=== PATIENT | male | born 1995 ===

== ENCOUNTER 2017-11-01 19:28 | Emergency (ER) | payer OTHER ==
[2017-11-01 19:55] VITALS: BP 101/65; PULSE 73; RESP 20; TEMP 98.2; O2SAT 98
[2017-11-01] MEDS ORDERED: Tdap Vaccine 0.5 ml Vial (10-64 yrs) IM ONE ×2 (20:07→20:15)
[2017-11-01] MEDS ORDERED: Silver Sulfadiazine 1% CREAM (50 gm) TOP STA (20:08)
[2017-11-01] MEDS ORDERED: Silver Sulfadiazine 1% CREAM (50 gm) ONE (20:14)
--- NOTE | 2017-11-01 20:16 | ED PDOC ---
Lower Extremity Pain/Injury Time Seen by Provider: 11/01/17 20:05 Chief Complaint (Nursing): Lower Extremity Problem/Injury Chief Complaint (Provider): Lower extremity problem/injury History Per: Patient History/Exam Limitations: no limitations Onset/Duration Of Symptoms: Other (x1 week) Current Symptoms Are (Timing): Still Present Additional Complaint(s): 22 year old male presented to ED after he spilt water on the foot last week and was told to be seen in the ED. Patient reports there was black tissue on his foot and was hurt very badly at the time. Pain continued but is less now. He has been using [place] medications for the burn. Denied fever and chills. PCP: none provided Past Medical History Reviewed: Historical Data, Nursing Documentation, Vital Signs Vital Signs: Last Vital Signs Temp 98.2 F 11/01/17 19:54 Pulse 73 11/01/17 19:54 Resp 20 11/01/17 19:54 BP 101/65 11/01/17 19:54 Pulse Ox 98 11/01/17 19:54 - Medical History PMH: Asthma - Surgical History Surgical History: No Surg Hx - Family History Family History: States: Unknown Family Hx - Immunization History Hx Tetanus Toxoid Vaccination: No Hx Influenza Vaccination: Yes Hx Pneumococcal Vaccination: No - Home Medications Home Medications: Ambulatory Orders Medication Instructions Recorded Acetaminophen [Tylenol 325mg tab] 650 mg PO Q4 PRN #20 tab 11/26/16 Silver Sulfadiazine 1% 50 gm 0.5 gm EXT BID #1 jar 11/01/17 [Silvadene 1% 50 gm] - Allergies Allergies/Adverse Reactions: Allergies Allergy/AdvReac Type Severity Reaction Status Date / Time No Known Allergies Allergy Verified 11/01/17 19:53 Review of Systems ROS Statement: Except As Marked, All Systems Reviewed And Found Negative Constitutional: Negative for: Fever, Chills Musculoskeletal: Positive for: Other (black tissue on foot) Physical Exam - Reviewed Nursing Documentation Reviewed: Yes Vital Signs Reviewed: Yes - Physical Exam Appears: Positive for: Non-toxic, No Acute Distress Head Exam: Positive for: ATRAUMATIC, NORMAL INSPECTION, NORMOCEPHALIC Skin: Positive for: Normal Color, Warm, Dry Neck: Positive for: Normal, Painless ROM Cardiovascular/Chest: Positive for: Regular Rate, Rhythm. Negative for: Murmur Respiratory: Positive for: Normal Breath Sounds. Negative for: Wheezing, Respiratory Distress Extremity: Positive for: Normal ROM Neurologic/Psych: Positive for: Alert, Oriented Comments: RIGHT FOOT: dorsum of right foot near base of 4th toe, burn located there, well healing, open blisters, and mild darkening of skin but no necrosis noted. - ECG O2 Sat by Pulse Oximetry: 98 (RA) Pulse Ox Interpretation: Normal Medical Decision Making Medical Decision Making: Initial Impression: Right foot burn Initial Plan: Silver sulfadiazine 1% 1 applic Top Tetanus 0.5mL IM Scribe Attestation: Documented by Marco Antonio Joseph acting as a scribe for Rikki MELO. Provider Scribe Attestation: All medical record entries made by the Scribe were at my direction and personally dictated by me. I have reviewed the chart and agree that the record accurately reflects my personal performance of the history, physical exam, medical decision making, and the department course for this patient. I have also personally directed, reviewed, and agree with the discharge instructions and disposition. Disposition - Clinical Impression Clinical Impression: Partial thickness burn - Patient ED Disposition Is Patient to be Admitted: No - Disposition Referrals: [facility] [Outside] [facility] [Outside] Disposition: Routine/Home Disposition Time: 20:10 Condition: IMPROVED Prescriptions: Silver Sulfadiazine 1% 50 gm [Silvadene 1% 50 gm] 0.5 gm EXT BID #1 jar Instructions: Skin Carlos (DC) Forms: [employer] (Upper Sor[place]), [facility] ED School/Work Excuse
== END 2017-11-01 20:38 | disposition home or self-care (01) ==
LOC: H.ER 19:28
DX: T25.021A Burn of unspecified degree of right foot, initial encounter (principal); J45.909 Unspecified asthma, uncomplicated

== ENCOUNTER 2018-08-28 20:42 | Inpatient (IN) | payer SELFPAY ==
[2018-08-28] MEDS ORDERED: Sodium Chloride 0.9% 1,000 ML IV STA (21:36)
--- NOTE | 2018-08-28 21:40 | ED PDOC ---
HPI: Abdomen Time Seen by Provider: 08/28/18 20:56 Chief Complaint (Nursing): Abdominal Pain History Per: Patient History/Exam Limitations: no limitations Onset/Duration Of Symptoms: Days (4) Current Symptoms Are (Timing): Still Present Severity: Mild Location Of Pain/Discomfort: RLQ Associated Symptoms: Diarrhea Last Bowel Movement: Today Additional History Per: Patient Additional Complaint(s): Patient presenting with abdominal pain after being called to return for abnormal CT findings. Patient was seen in ER here yesterday and had CT abdomen that was read by KARENrad showing colitis. Final radiology results showed possible appendicitis. Past Medical History Reviewed: Historical Data, Nursing Documentation, Vital Signs Vital Signs: Last Vital Signs Temp 98.4 F 08/28/18 21:05 Pulse 71 08/28/18 21:05 Resp 18 08/28/18 21:05 BP 177/71 H 08/28/18 21:05 Pulse Ox 97 08/28/18 21:05 - Medical History PMH: Asthma - Surgical History Surgical History: No Surg Hx - Family History Family History: States: Unknown Family Hx - Immunization History Hx Tetanus Toxoid Vaccination: No Hx Influenza Vaccination: Yes Hx Pneumococcal Vaccination: No - Home Medications Home Medications: Ambulatory Orders Medication Instructions Recorded No Known Home Med 08/28/18 - Allergies Allergies/Adverse Reactions: Allergies Allergy/AdvReac Type Severity Reaction Status Date / Time No Known Allergies Allergy Verified 08/28/18 21:18 Review of Systems ROS Statement: Except As Marked, All Systems Reviewed And Found Negative Physical Exam - Reviewed Nursing Documentation Reviewed: Yes Vital Signs Reviewed: Yes - Physical Exam Appears: Positive for: Well, Non-toxic, No Acute Distress Head Exam: Positive for: ATRAUMATIC, NORMAL INSPECTION Skin: Positive for: Normal Color, Warm, Dry Eye Exam: Positive for: EOMI ENT: Positive for: Normal ENT Inspection Cardiovascular/Chest: Positive for: Regular Rate, Rhythm Respiratory: Positive for: Normal Breath Sounds Gastrointestinal/Abdominal: Positive for: Soft, Tenderness (RLQ) Extremity: Positive for: Normal ROM Neurological/Psych: Positive for: Awake, Alert, Oriented (x3) - Laboratory Results Result Diagrams: 08/29/18 06:05 08/29/18 06:05 - ECG O2 Sat by Pulse Oximetry: 97 Medical Decision Making Medical Decision Making: Abdominal pain Diff include acute appendicitis Plan Labs Surgery consult reassess FINAL CT RESULTS FROM [facility] RADIOLOG[facility] ON 08/28/2018 Accession No. : [id number] Patient Name / ID : KENNETH FINCH / [id number] Exam Date : 08/27/2018 20:11:13 ( Approved ) Study Comment : Sex / Age : M / 23Y Creator : Vin Cortes MD Dictator : Vin Cortes MD Field Coil Winder : Outpatient Psychiatrist : Vin Cortes MD Approver2 : Report Date : 08/28/2018 11:46:06 My Comment : Date of service: 08/27/2018 PROCEDURE: CT Abdomen and Pelvis with contrast HISTORY: lower abdominal pain COMPARISON: 2012 TECHNIQUE: Contrast dose: 90 milliliters Radiation dose: Total exam DLP = 254.34 mGy-cm. This CT exam was performed using one or more of the following dose reduction techniques: Automated exposure control, adjustment of the mA and/or kV according to patient size, and/or use of iterative reconstruction technique. FINDINGS: LOWER THORAX: Unremarkable. LIVER: Liver is slightly fatty infiltrated, without evidence of focal mass or intrahe patic ductal dilatation. GALLBLADDER AND BILE DUCTS: Unremarkable. PANCREAS: Unremarkable. No gross lesion or ductal dilatation. SPLEEN: Unremarkable. ADRENALS: Unremarkable. No mass. KIDNEYS AND URETERS: Unremarkable. No hydronephrosis. No solid mass. VASCULATURE: Unremarkable. No aortic aneurysm. No aortic atherosclerotic calcification or mural plaque present. BOWEL: There is evidence of nonspecific diffuse colonic wall thickening with mild pericolonic inflammatory changes suspicious for colitis of either infectious or inflammatory etiology. There is also some subtle mild fold thickening of the small bowel without significant distention or dilatation. Mild amount of superimposed enteritis is not excluded. Terminal ileum is unremarkable. APPENDIX: The appendix is mildly distended with fluid with mild possible appendiceal wall enhancement and adjacent enhancement/inflammatory change. This may suggest early appendicitis. Correlation with symptoms would be suggested. Appendix measures 7-8 millimeters in maximal diameter. PERITONEUM: There may be some minimal fluid seen within the posterior pelvis. LYMPH NODES: Unremarkable. No enlarged lymph nodes. BLADDER: Unremarkable. REPRODUCTIVE: Unremarkable. BONES: No acute fracture. OTHER FINDINGS: None. IMPRESSION: Non-specific colitis of either infectious or inflammatory etiology with diffuse colonic wall thickening and mild pericolonic inflammatory changes noted. In addition the appendix is distended with fluid with mild possible periappendiceal change and enhancement of the wall. Early appendicitis is suspected. Correlation with symptoms, exam, and laboratory values is suggested. This last finding was not mentioned on the preliminary report. This case will be placed into the PA review folder. PA in the emergency room was notified of the findings. Time: 2204 -- Spoke to surgical specialist who will evaluate the patient in the ED. vice president of customer service Discussed with Dr Lindsey who will admit the patient. Scribe Attestation: Documented by Martha Varela, acting as a scribe Amanda Reyes MD. Provider Scribe Attestation: All medical record entries made by the Scribe were at my direction and personally dictated by me. I have reviewed the chart and agree that the record accurately reflects my personal performance of the medical decision making for this patient. I have also personally directed, reviewed, and agree with the discharge instructions and disposition. Disposition - Clinical Impression Clinical Impression: Appendicitis, acute - Patient ED Disposition Is Patient to be Admitted: Yes Doctor Will See Patient In The: Hospital Counseled Patient/Family Regarding: Studies Performed, Diagnosis - Disposition Disposition Time: 22:22 Condition: STABLE - Pt Status Changed To: Hospital Disposition Of: Inpatient - Admit Certification Admit to Inpatient:: After my assessment, the patient will require hospitalization for at least two midnights. This is because of the severity of symptoms shown, intensity of services needed, and/or the medical risk in this patient being treated as an outpatient. - POA Present On Arrival: None
[2018-08-28 22:01] LABS: BASO % 0.7 % (0.0-2.0); EOS # 0.5 K/uL (0.0-0.7); EOS % 9.2 % (0.0-4.0); LYMPH # 1.7 K/uL (1.0-4.3); LYMPH % 30.3 % (20.0-40.0); MEAN CELL VOLUME 89.7 fl (80.0-94.0); MEAN CORPUSCULAR HEMOGLOBIN 30.1 pg (27.0-31.0); MEAN CORPUSCULAR HGB CONC 33.6 g/dL (33.0-37.0); MEAN PLATELET VOLUME 8.9 fl (7.2-11.7); MONO # 0.7 K/uL (0.0-0.8); MONO % 12.4 % (0.0-10.0); NEUT # 2.7 K/uL (1.8-7.0); NEUT % 47.4 % (50.0-75.0); NRBC % 0.1 % (0.0-0.0); RBC 5.32 Mil/uL (4.40-5.90); RED CELL DISTRIBUTION WIDTH 13.3 % (11.5-14.5); WHITE BLOOD COUNT 5.6 K/uL (4.8-10.8)
[2018-08-28 22:08] LABS: BLOOD UREA NITROGEN 10 mg/dl (9-20); CALCIUM 9.3 mg/dL (8.4-10.2); GFR NON-AFRICAN AMERICAN > 60; PROTHROMBIN TIME 11.8 Seconds (9.8-13.1)
[2018-08-28 22:10] LABS: PARTIAL THROMBOPLASTIN TIME 30.2 Seconds (25.6-37.1)
[2018-08-28] MEDS ORDERED: Piperacillin/Tazobact 3.375 GM in Sodium Chloride 0.9% 100 ML IVPB STA (22:23)
--- NOTE | 2018-08-28 22:30 | CP.PCM.HP ---
History of Present Illness - History of Present Illness History of Present Illness: GENERAL SURGERY HISTORY AND PHYSICAL FOR DR. FLYNN 23yo M with PMHx of asthma presents to the ED with abdominal pain and diarrhea. The pain began 3 days ago and was bilateral lower abdomen. He had diarrhea 20x each day over the past 2 days and then just 2 BMs today. He originally presented to [facility] ED and was discharged home per pt. He was seen at [facility] ED yesterday and CT was read by Akhil as colitis. He was discharged home with Rx for cipro and dicyclomine which pt did not fill. The CT was read by inhouse radiologist this morning as possible early appendicitis in addition to diffuse colitis. Pt was called and told to return to the ED for surgical evaluation. Pt reports that while initially his pain was bilateral lower abdomen, he did have some isolated RLQ mild pains today. Pt reports having an appetite today and ate normal meals. PMHx: asthma Surgeries: none Allergies: cats Social hx: social etoh, social smoker, quit marijuana 5 months ago Present on Admission - Present on Admission Any Indicators Present on Admission: No Review of Systems - Review of Systems All systems: reviewed and no additional remarkable complaints except Past Patient History - Past Social History Smoking Status: Never Smoked - PULMONARY Hx Asthma: Yes - GASTROINTESTINAL Hx Colitis: Yes - PSYCHIATRIC Hx Substance Use: No - SURGICAL HISTORY Hx Surgeries: No Meds Allergies/Adverse Reactions: Allergies Allergy/AdvReac Type Severity Reaction Status Date / Time No Known Allergies Allergy Verified 08/28/18 21:18 Physical Exam - Constitutional Appears: Well, Non-toxic, No Acute Distress - Head Exam Head Exam: ATRAUMATIC, NORMAL INSPECTION - Eye Exam Eye Exam: EOMI, Normal appearance - Respiratory Exam Respiratory Exam: NORMAL BREATHING PATTERN. absent: Respiratory Distress - Cardiovascular Exam Cardiovascular Exam: +S1, +S2 - GI/Abdominal Exam GI & Abdominal Exam: Soft, Tenderness (mild RLQ tenderness on deep palpation). absent: Distended, Firm, Guarding, Rebound, Rigid - Neurological Exam Neurological exam: Alert, CN II-XII Intact, Oriented x3 - Psychiatric Exam Psychiatric exam: Normal Affect, Normal Mood - Skin Skin Exam: Dry, Normal Color, Warm Results - Vital Signs Recent Vital Signs: Last Vital Signs Temp 98.4 F 08/28/18 21:05 Pulse 71 08/28/18 21:05 Resp 18 08/28/18 21:05 BP 177/71 H 08/28/18 21:05 Pulse Ox 97 08/28/18 22:06 - Labs Result Diagrams: 08/28/18 21:45 08/28/18 21:45 Labs: Laboratory Results - last 24 hr 08/28/18 08/28/18 08/28/18 21:45 21:45 21:45 WBC 5.6 RBC 5.32 Hgb 16.0 Hct 47.7 MCV 89.7 MCH 30.1 MCHC 33.6 RDW 13.3 Plt Count 133 MPV 8.9 Neut % (Auto) 47.4 L Lymph % (Auto) 30.3 [place] % (Auto) 12.4 H Eos % (Auto) 9.2 H Baso % (Auto) 0.7 Neut # (Auto) 2.7 Lymph # (Auto) 1.7 [place] # (Auto) 0.7 Eos # (Auto) 0.5 Baso # (Auto) 0.0 PT 11.8 INR 1.0 APTT 30.2 Sodium 140 Potassium 3.9 Chloride 98 Carbon Dioxide 29 Anion Gap 17 BUN 10 Creatinine 0.9 Est GFR ( Amer) > 60 Est GFR (Non-Af Amer) > 60 Random Glucose 93 Calcium 9.3 Assessment & Plan - Assessment and Plan (Free Text) Assessment: 23yo M with PMHx of asthma presents with colitis and possible early appendicitis - Afebrile, VSS - No leukokcytosis - CT: appendix mildly distended with fluid and mild possible periappendiceal wall enhancement and adjacent enhancement / inflammatory changes suggesting possible early appendicitis; diffuse colonic wall thickening suggestive of col itis - Admit to surgical service for observation overnight - NPO - IV fluids - IV Antibiotics - Serial abdominal exams - Possible OR tomorrow if worsening of sx or no improvement - Discussed plan with Dr. César Rhoades PGY-4
[2018-08-28] MEDS ORDERED: Lactated Ringer's 1,000 ML IV SCH (22:45)
[2018-08-28] MEDS ORDERED: Piperacillin/Tazobact 3.375 gm Inj IVPB ONE (22:48)
[2018-08-29] MEDS: Piperacillin/Tazobact 3.375 GM in Sodium Chloride 0.9% 100 ML IVPB SCH ×2 (04:34→09:20)
[2018-08-29 07:28] LABS: HEMOGLOBIN 15.1 g/dL (12.0-18.0); MEAN CELL VOLUME 90.4 fl (80.0-94.0); MEAN CORPUSCULAR HEMOGLOBIN 30.4 pg (27.0-31.0); MEAN CORPUSCULAR HGB CONC 33.6 g/dL (33.0-37.0); RBC 4.98 Mil/uL (4.40-5.90); RED CELL DISTRIBUTION WIDTH 13.3 % (11.5-14.5); WHITE BLOOD COUNT 7.3 K/uL (4.8-10.8)
--- NOTE | 2018-08-29 08:09 | CP.PCM.PN ---
Objective - Vital Signs/Intake and Output Vital Signs (last 24 hours): Temp Pulse Resp BP Pulse Ox 97.5 F L 63 19 100/67 97 08/29/18 01:00 08/29/18 01:00 08/29/18 01:00 08/29/18 01:00 08/29/18 01:00 - Medications Medications: Current Medications Lactated Ringer's (Lactated Ringer's) 1,000 mls @ 100 mls/hr IV .Q10H CLIFF Last Admin: 08/28/18 23:56 Dose: 100 mls/hr Piperacillin Sod/Tazobactam (Sod 3.375 gm/ Sodium Chloride) 100 mls @ 100 mls/hr IVPB Q6 CLIFF; Protocol Last Admin: 08/29/18 04:34 Dose: 100 mls/hr Influenza Virus Vaccine (Flucelvax Quad [id number] Syr) 60 mcg IM .ONCE ONE Stop: 08/29/18 09:31 Ketorolac Tromethamine (Toradol) 15 mg IVP Q6 PRN PRN Reason: Pain, moderate (4-7) Morphine Sulfate (Morphine) 2 mg IVP Q4 PRN PRN Reason: Pain, severe (8-10) Ondansetron HCl (Zofran Inj) 4 mg IVP Q4 PRN PRN Reason: Nausea/Vomiting Pneumococcal Polyvalent Vaccine (Pneumovax 23 Vaccine) 0.5 ml IM .ONCE ONE Stop: 08/29/18 09:32 - Labs Labs: 08/29/18 06:05 08/28/18 21:45 PT 11.8 Seconds (9.8-13.1) 08/28/18 21:45 INR 1.0 08/28/18 21:45 APTT 30.2 Seconds (25.6-37.1) 08/28/18 21:45
[2018-08-29] MEDS ORDERED: Influenza Vaccine (5 YR UP)/PF 60 MCG/0.5 ML SYR IM ONE (09:00)
[2018-08-29 09:02] VITALS: BP 103/64; PULSE 67; RESP 20; TEMP 97.3
[2018-08-29 09:09] LABS: BLOOD UREA NITROGEN 12 mg/dl (9-20); CALCIUM 8.7 mg/dL (8.4-10.2); GFR NON-AFRICAN AMERICAN > 60
[2018-08-29] MEDS ORDERED: Influenza Vaccine 60 mcg/0.5 mL SYR (4YR UP) IM ONE (09:30)
[2018-08-29] MEDS ORDERED: Pneumococcal 23-Valent Vaccine IM ONE (09:31)
[2018-08-29 10:21] VITALS: O2SAT 97
--- NOTE | 2018-08-29 12:14 | CP.PCM.DIS ---
Provider - Provider Date of Admission: 08/28/18 22:22 Attending physician: Donnie Lindsey MD Primary care physician: none provided Consults: General Surgery, Dr. Lindsey Time Spent in preparation of Discharge (in minutes): 30 Hospital Course - Lab Results Lab Results: Most Recent Lab Values WBC 7.3 K/uL (4.8-10.8) 08/29/18 06:05 RBC 4.98 Mil/uL (4.40-5.90) 08/29/18 06:05 Hgb 15.1 g/dL (12.0-18.0) 08/29/18 06:05 Hct 45.0 % (35.0-51.0) 08/29/18 06:05 MCV 90.4 fl (80.0-94.0) 08/29/18 06:05 MCH 30.4 pg (27.0-31.0) 08/29/18 06:05 MCHC 33.6 g/dL (33.0-37.0) 08/29/18 06:05 RDW 13.3 % (11.5-14.5) 08/29/18 06:05 Plt Count 127 K/uL (130-400) L 08/29/18 06:05 MPV 8.9 fl (7.2-11.7) 08/28/18 21:45 Neut % (Auto) 47.4 % (50.0-75.0) L 08/28/18 21:45 Lymph % (Auto) 30.3 % (20.0-40.0) 08/28/18 21:45 [place] % (Auto) 12.4 % (0.0-10.0) H 08/28/18 21:45 Eos % (Auto) 9.2 % (0.0-4.0) H 08/28/18 21:45 Baso % (Auto) 0.7 % (0.0-2.0) 08/28/18 21:45 Neut # (Auto) 2.7 K/uL (1.8-7.0) 08/28/18 21:45 Lymph # (Auto) 1.7 K/uL (1.0-4.3) 08/28/18 21:45 [place] # (Auto) 0.7 K/uL (0.0-0.8) 08/28/18 21:45 Eos # (Auto) 0.5 K/uL (0.0-0.7) 08/28/18 21:45 Baso # (Auto) 0.0 K/uL (0.0-0.2) 08/28/18 21:45 PT 11.8 Seconds (9.8-13.1) 08/28/18 21:45 INR 1.0 08/28/18 21:45 APTT 30.2 Seconds (25.6-37.1) 08/28/18 21:45 Sodium 142 mmol/l (132-148) 08/29/18 06:05 Potassium 3.8 MMOL/L (3.6-5.0) 08/29/18 06:05 Chloride 108 mmol/L (98-107) H 08/29/18 06:05 Carbon Dioxide 27 mmol/L (22-30) 08/29/18 06:05 Anion Gap 11 (10-20) 08/29/18 06:05 BUN 12 mg/dl (9-20) 08/29/18 06:05 Creatinine 1.0 mg/dl (0.8-1.5) 08/29/18 06:05 Est GFR ( Amer) > 60 08/29/18 06:05 Est GFR (Non-Af Amer) > 60 08/29/18 06:05 Random Glucose 92 mg/dL (75-110) 08/29/18 06:05 Calcium 8.7 mg/dL (8.4-10.2) 08/29/18 06:05 Blood Type A POSITIVE 08/28/18 21:45 Blood Type Confirm A POSITIVE 08/29/18 06:05 Antibody Screen Negative 08/28/18 21:45 BBK History Checked No verified bt 08/28/18 21:45 - Hospital Course Hospital Course: General Surgery note for Dr. Lindsey 23 y/o male with PMHx of asthma presented to the ED on 08/28/18 with abdominal pain and diarrhea. The pain began 3 days ago and was bilateral lower abdomen. Patient originally presented to [facility] ED and was discharged home per pt. He was seen at [facility] ED yesterday and CT was read by Akhil as colitis. He was disch arged home with Rx for cipro and dicyclomine which pt did not fill. The CT was read by inhouse radiologist this morning as possible early appendicitis in addition to diffuse colitis. Pt was called and told to return to the ED for surgical evaluation. Today, patient reports the pain has significantly improved, patient denies nausea, vomiting, fever or diarrhea at this time. Patient to follow up at outpatient - Regular Diet - CT: appendix mildly distended with fluid and mild possible periappendiceal wall enhancement and adjacent enhancement / inflammatory changes suggesting possible early appendicitis; diffuse colonic wall thickening suggestive of colitis -OTC pain medication -Encourage ambulation case discussed with Dr. César Jacobs, PGY1 - Date & Time of H&P Date of H&P: 08/29/18 Time of H&P: 12:14 Discharge Exam - Head Exam Head Exam: ATRAUMATIC, NORMAL INSPECTION - Eye Exam Eye Exam: Normal appearance - ENT Exam ENT Exam: Mucous Membranes Moist - Respiratory Exam Respiratory Exam: Clear to PA & Lateral. absent: Accessory Muscle Use, Respiratory Distress - Cardiovascular Exam Cardiovascular Exam: REGULAR RHYTHM, +S1, +S2 - GI/Abdominal Exam GI & Abdominal Exam: Normal Bowel Sounds, Tenderness (minimal RLQ tenderness). absent: Distended, Firm, Guarding - Neurological Exam Neurological exam: Alert, Oriented x3 - Psychiatric Exam Psychiatric exam: Normal Affect, Normal Mood - Skin Skin Exam: Normal Color Discharge Plan - Follow Up Plan Condition: STABLE Disposition: HOME/ ROUTINE Patient education suggested?: Yes Instructions: Appendicitis, Adult (DC) Additional Instructions: follow up with dr lindsey 1 week Referrals: Donnie Lindsey MD [Staff Provider] -
== END 2018-08-29 14:35 | disposition home or self-care (01) | DRG 395 ==
LOC: H.ER 20:42 → H.ERHOLD 22:22 → H.MEDSURG1 23:41
PROVIDERS: ADMIT Specialist; ATTEND Specialist
PROC: 3E0234Z Introduction of Serum, Toxoid and Vaccine into Muscle, Percutaneous Approach (ICD-10-PCS; principal; 2018-08-29)
PROC: 3E02340 Introduction of Influenza Vaccine into Muscle, Percutaneous Approach (ICD-10-PCS; 2018-08-29)
DX: K35.80 Unspecified acute appendicitis (principal); K52.9 Noninfective gastroenteritis and colitis, unspecified; J45.909 Unspecified asthma, uncomplicated; Z23 Encounter for immunization; F17.200 Nicotine dependence, unspecified, uncomplicated